=== PATIENT | male | born 1985 | race Caucasian/White ===

== ENCOUNTER 2017-03-28 12:56 | Emergency (ER) | payer SELFPAY ==
[2017-03-28] MEDS ORDERED: DICYCLOMINE HCL 10 MG/ML AMPUL IM ONE (14:35)
[2017-03-28] MEDS ORDERED: 0.9 % SODIUM CHLORIDE 1,000 ML BAG IV ONE (14:35)
--- NOTE | 2017-03-28 14:35 | Emergency Department Record ---
History of Present Illness - General Chief complaint: Rectal bleeding Stated complaint: BLOOD IN STOOL Time Seen by Provider: 03/28/17 14:29 Source: Patient Mode of Arrival: Ambulatory - History of Present Illness Initial comments: The patient has had 3 episodes of blood on his stool when he has a BM since last night. The stool itself is a normal brown but he noticed that there is blood in the toilet water (he showed a picture on his cell phone of it). He last had rectal intercourse two days ago. He states he has discomfort in his lower abdomen bilaterally which does NOT radiate to the back. He denies f,c,n,v, d, constipation. He does have a cough and is a smoker and thinks he is coming down with something" because he is coughing more. Onset/Timin -: Days(s) Radiation: LLQ, RLQ Severity scale (1-10): 5 Quality: Cramping Consistency: Constant Improves with: None Worsens with: Bowel movement Context: Rectal trauma Associated Symptoms: Abdominal pain Treatments Prior to Arrival: None - Related Data Home Medications Medication Instructions Recorded Confirmed Last Taken Albuterol Sulfate 0.083% [Neb] 3 ml NEB DAILY 03/28/17 03/28/17 03/27/17 Albuterol Sulfate [Proair Hfa] 1 - 2 puff IH Q4HR PRN 03/28/17 03/28/17 Unknown Allergies Allergy/AdvReac Type Severity Reaction Status Date / Time budesonide [From Symbicort] Allergy SWELLING Verified 03/28/17 13:24 (GENERAL) formoterol [From Symbicort] Allergy SWELLING Verified 03/28/17 13:24 (GENERAL) Sulfa (Sulfonamide Allergy SWELLING Verified 03/28/17 13:24 Antibiotics) (GENERAL) Travel Screening - Travel/Exposure Within Last 30 Days Have you traveled within the last 30 days?: No - Travel Symptoms Symptom Screening: None Review of Systems Reviewed: No additional complaints except as noted below Constitutional: Reports: As per HPI. Denies: Chills, Fever, Malaise, Night sweats, Weakness, Weight change Eyes: Reports: As per HPI. Denies: Eye discharge, Eye pain, Photophobia, Vision change ENT: Reports: As per HPI. Denies: Congestion, Dental pain, Ear pain, Epistaxis , Hearing loss, Throat pain Respiratory: Reports: As per HPI. Denies: Cough, Dyspnea, Hemoptysis, Stridor, Wheezes Cardiovascular: Reports: As per HPI. Denies: Arrhythmia, Chest pain, Dyspnea on exertion, Edema, Murmurs, Orthopnea, Palpitations, Paroxysmal nocturnal dyspnea, Rheumatic Fever, Syncope Endocrine: Reports: As per HPI. Denies: Fatigue, Heat or cold intolerance, Polydipsia, Polyuria Gastrointestinal: Reports: As per HPI. Denies: Abdominal pain, Constipation, Diarrhea, Hematemesis, Hematochezia, Melena, Nausea, Vomiting Genitourinary: Reports: As per HPI. Denies: Dysuria, Frequency, Hematuria, Incontinence, Retention, Testicular pain, Testicular mass, Urgency Musculoskeletal: Reports: As per HPI. Denies: Arthralgia, Back pain, Gout, Joint swelling, Myalgia, Neck pain Skin: Reports: As per HPI. Denies: Bruising, Change in color, Change in hair/ nails, Lesions, Pruritus, Rash Neurological: Reports: As per HPI. Denies: Abnormal gait, Confusion, Headache, Numbness, Paresthesias, Seizure, Tingling, Tremors, Vertigo, Weakness Psychiatric: Reports: As per HPI. Denies: Anxiety, Auditory hallucinations, Depression, Homicidal thoughts, Suicidal thoughts, Visual hallucinations Hematological/Lymphatic: Reports: As per HPI. Denies: Anemia, Blood Clots, Easy bleeding, Easy bruising, Swollen glands Past Medical History - SOCIAL HISTORY Smoking Status: Never smoker Alcohol Use: Occasional Drug Use: None - RESPIRATORY Hx Respiratory Disorders: Yes Hx COPD: Yes - CARDIOVASCULAR Hx Cardio Disorders: Yes Hx Hypertension: Yes - NEURO Hx Neuro Disorders: No - GI Hx GI Disorders: No - Hx Genitourinary Disorders: No - ENDOCRINE Hx Endocrine Disorders: No - MUSCULOSKELETAL Hx Musculoskeletal Disorders: No - PSYCH Hx Psych Problems: No - HEMATOLOGY/ONCOLOGY Hx Hematology/Oncology Disorders: No Family Medical History Any Significant Family History?: No Physical Exam - General General Appearance: Alert, Oriented x3, Cooperative, No acute distress - Head Head exam: Normal inspection - Eye Eye exam: Normal appearance, PERRL Pupils: Normal accommodation - ENT ENT exam: Normal exam, Mucous membranes moist, Normal external ear exam, Normal orophraynx, TM's normal bilaterally Ear exam: Normal external inspection. negative: External canal tenderness Nasal Exam: Normal inspection. negative: Discharge, Sinus tenderness Mouth exam: Normal external inspection, Tongue normal Teeth exam: Normal inspection. negative: Dental caries Throat exam: Normal inspection. negative: Tonsillar erythema, Tonsillar exudate - Neck Neck exam: Normal inspection, Full ROM. negative: Tenderness - Respiratory Respiratory exam: Rhonchi. negative: Respiratory distress - Cardiovascular Cardiovascular Exam: Regular rate, Normal rhythm, Normal heart sounds - GI/Abdominal GI/Abdominal exam: Soft, Normal bowel sounds, Tenderness (bilateral lowe abdominal tenderness on palpation). negative: Rebound, Rigid - Rectal Rectal exam: Deferred - exam: Deferred - Extremities Extremities exam: Normal inspection, Full ROM, Normal capillary refill. negative: Calf tenderness, Pedal edema, Tenderness - Back Back exam: Reports: Normal inspection, Full ROM. Denies: CVA tenderness (R), CVA tenderness (L), Muscle spasm, Rash noted, Tenderness - Neurological Neurological exam: Alert, Normal gait, Oriented X3, Reflexes normal - Psychiatric Psychiatric exam: Normal affect, Normal mood - Skin Skin exam: Dry, Intact, Normal color, Warm Course Vital Signs 03/28/17 13:25 Temperature 98.2 F Pulse Rate 63 Respiratory 18 Rate Blood Pressure 128/87 Pulse Ox 98 Disposition Quality - Blood Pressure Screening Does Patient Have Any of the Following: No Blood Pressure Classification: Pre-Hypertensive BP Reading Systolic Measurement: 128 Diastolic Measurement: 87 Screening for High Blood Pressure: < Pre-Hypertensive BP, F/U Documented > [ G8950]
== END 2017-03-28 15:00 | disposition left against medical advice (07) ==
LOC: ER 12:56
DX: R10.30 Lower abdominal pain, unspecified (principal); R05 Cough; I10 Essential (primary) hypertension; F17.210 Nicotine dependence, cigarettes, uncomplicated
CPT/HCPCS: 99281

== ENCOUNTER 2017-05-15 13:27 | Emergency (ER) | payer SELFPAY ==
[2017-05-15 13:50] LABS: STREP A SCREEN NEGATIVE (NEGATIVE)
[2017-05-15 13:58] LABS: INFLUENZA A NEGATIVE (NEGATIVE); INFLUENZA B NEGATIVE (NEGATIVE)
--- NOTE | 2017-05-15 14:33 | Emergency Department Record ---
History of Present Illness - General Chief Complaint: Cough Stated Complaint: GEORGE, COUGH Time Seen by Provider: 05/15/17 14:20 Mode of Arrival: Ambulatory - History of Present Illness Initial Comments: patient smokes and went to urgent care and insurANCE IS NOT ACTIVE SO WENT TO THE ed. MD Complaint: Cough, Nasal congestion, Sore throat Onset/Timin -: Days(s) Severity: Moderate Severity scale (1-10): 5 Consistency: Constant - Related Data Previous Rx's Medication Instructions Recorded Albuterol Sulfate [Ventolin Hfa] 1 - 2 puff IH .EVERY 4-6 HRS PRN 05/15/17 #1 inhaler Amoxicillin 500Mg Capsule [Amoxil] 500 mg PO TID #30 tab 05/15/17 Allergies Allergy/AdvReac Type Severity Reaction Status Date / Time budesonide [From Symbicort] Allergy SWELLING Verified 05/15/17 13:36 (GENERAL) formoterol [From Symbicort] Allergy SWELLING Verified 05/15/17 13:36 (GENERAL) Sulfa (Sulfonamide Allergy SWELLING Verified 05/15/17 13:36 Antibiotics) (GENERAL) Travel Screening - Travel/Exposure Within Last 30 Days Have you traveled within the last 30 days?: No - Travel/Exposure Within Last Year Have you traveled outside the [place] in the last year?: No - Additonal Travel Details Have you been exposed to anyone with a communicable illness?: No - Travel Symptoms Symptom Screening: None Review of Systems Reviewed: No additional complaints except as noted below Constitutional: Reports: As per HPI. Denies: Chills, Fever, Malaise, Night sweats, Weakness, Weight change Eyes: Reports: As per HPI. Denies: Eye discharge, Eye pain, Photophobia, Vision change ENT: Reports: As per HPI, Congestion, Throat pain. Denies: Dental pain, Ear pain, Epistaxis, Hearing loss Respiratory: Reports: As per HPI, Cough. Denies: Dyspnea, Hemoptysis, Stridor, Wheezes Cardiovascular: Reports: As per HPI. Denies: Arrhythmia, Chest pain, Dyspnea on exertion, Edema, Murmurs, Orthopnea, Palpitations, Paroxysmal nocturnal dyspnea, Rheumatic Fever, Syncope Endocrine: Reports: As per HPI. Denies: Fatigue, Heat or cold intolerance, Polydipsia, Polyuria Gastrointestinal: Reports: As per HPI. Denies: Abdominal pain, Constipation, Diarrhea, Hematemesis, Hematochezia, Melena, Nausea, Vomiting Genitourinary: Reports: As per HPI. Denies: Dysuria, Frequency, Hematuria, Incontinence, Retention, Testicular pain, Testicular mass, Urgency Musculoskeletal: Reports: As per HPI. Denies: Arthralgia, Back pain, Gout, Joint swelling, Myalgia, Neck pain Skin: Reports: As per HPI. Denies: Bruising, Change in color, Change in hair/ nails, Lesions, Pruritus, Rash Neurological: Reports: As per HPI. Denies: Abnormal gait, Confusion, Headache, Numbness, Paresthesias, Seizure, Tingling, Tremors, Vertigo, Weakness Psychiatric: Reports: As per HPI. Denies: Anxiety, Auditory hallucinations, Depression, Homicidal thoughts, Suicidal thoughts, Visual hallucinations Hematological/Lymphatic: Reports: As per HPI. Denies: Anemia, Blood Clots, Easy bleeding, Easy bruising, Swollen glands Past Medical History - SOCIAL HISTORY Smoking Status: Current every day smoker Alcohol Use: None Drug Use: None - RESPIRATORY Hx Respiratory Disorders: Yes Hx COPD: Yes - CARDIOVASCULAR Hx Cardio Disorders: Yes Hx Hypertension: Yes - NEURO Hx Neuro Disorders: No - GI Hx GI Disorders: No - Hx Genitourinary Disorders: No - ENDOCRINE Hx Endocrine Disorders: No - MUSCULOSKELETAL Hx Musculoskeletal Disorders: No - PSYCH Hx Psych Problems: No - HEMATOLOGY/ONCOLOGY Hx Hematology/Oncology Disorders: No Family Medical History Any Significant Family History?: Yes Physical Exam - General General Appearance: Alert, Oriented x3, Cooperative, No acute distress - Head Head exam: Normal inspection - Eye Eye exam: Normal appearance, PERRL Pupils: Normal accommodation - ENT ENT exam: Normal exam, Mucous membranes moist, Normal external ear exam, Normal orophraynx, TM's normal bilaterally Ear exam: Normal external inspection. negative: External canal tenderness Nasal Exam: Normal inspection. negative: Discharge, Sinus tenderness Mouth exam: Normal external inspection, Tongue normal Teeth exam: Normal inspection. negative: Dental caries Throat exam: Normal inspection. negative: Tonsillar erythema, Tonsillar exudate - Neck Neck exam: Normal inspection, Full ROM. negative: Tenderness - Respiratory Respiratory exam: Normal lung sounds bilaterally. negative: Respiratory distress - Cardiovascular Cardiovascular Exam: Regular rate, Normal rhythm, Normal heart sounds - GI/Abdominal GI/Abdominal exam: Soft, Normal bowel sounds. negative: Tenderness - Rectal Rectal exam: Deferred - exam: Deferred - Extremities Extremities exam: Normal inspection, Full ROM, Normal capillary refill. negative: Tenderness - Back Back exam: Reports: Normal inspection, Full ROM. Denies: Muscle spasm, Rash noted, Tenderness - Neurological Neurological exam: Alert, Normal gait, Oriented X3, Reflexes normal - Psychiatric Psychiatric exam: Normal affect, Normal mood - Skin Skin exam: Dry, Intact, Normal color, Warm Course Vital Signs 05/15/17 13:33 Temperature 97.9 F Pulse Rate 67 Respiratory 18 Rate Blood Pressure 133/81 Pulse Ox 98 Medical Decision Making - Lab Data Lab Results 05/15/17 Range/Units 13:40 Influenza Type A Ag Negative (NEGATIVE) Influenza Type B Ag Negative (NEGATIVE) Group A Strep Screen Negative (NEGATIVE) Disposition Clinical Impression: Bronchitis Sinusitis Qualifiers: Sinusitis location: unspecified location Chronicity: acute Recurrence: non- recurrent Qualified Code(s): J01.90 - Acute sinusitis, unspecified Disposition: Home, Self-Care Condition: (1) Good Instructions: Acute Bronchitis (ED), Sinusitis (ED) Additional Instructions: follow up with family Dr in 3 days stop cigs Prescriptions: Albuterol Sulfate [Ventolin Hfa] 1 - 2 puff IH .EVERY 4-6 HRS PRN #1 inhaler PRN Reason: Wheezing Amoxicillin 500Mg Capsule [Amoxil] 500 mg PO TID #30 tab Time of Disposition: 14:33 Quality - Quality Measures Quality Measures: N/A - Blood Pressure Screening Does Patient Have Any of the Following: No Blood Pressure Classification: Pre-Hypertensive BP Reading Systolic Measurement: 133 Diastolic Measurement: 81 Screening for High Blood Pressure: < Pre-Hypertensive BP, F/U Documented > [ G8950] Pre-Hypertensive Follow-up Interventions: Referral to alternative/primary care provider.
== END 2017-05-15 14:45 | disposition home or self-care (01) ==
LOC: ER 13:27
DX: J20.9 Acute bronchitis, unspecified (principal); J01.90 Acute sinusitis, unspecified; R51 Headache; I10 Essential (primary) hypertension; F17.210 Nicotine dependence, cigarettes, uncomplicated
CPT/HCPCS: 87400; 87880; 99282

== ENCOUNTER 2017-06-28 13:19 | Emergency (ER) | payer SELFPAY | END 2017-06-28 14:42 | disposition left against medical advice (07) | LOC: ER 13:19 | DX: Z53.20 Procedure and treatment not carried out because of patient's decision for unspecified reasons (principal) ==

== ENCOUNTER 2017-07-30 09:53 | Emergency (ER) | payer SELFPAY ==
--- NOTE | 2017-07-30 10:07 | Emergency Department Record ---
History of Present Illness - General Chief Complaint: Laceration(s) Stated Complaint: LACERATION TO FINGER Time Seen by Provider: 07/30/17 10:02 Source: Patient Mode of Arrival: Ambulatory Limitations: No limitations - History of Present Illness Initial Commments: 32 yo male injured his left middle finger in a door 45 minutes prior to arrival. He slammed the finger accidentally in the door. His nail is mostly avulsed. His last tetanus was one year ago per the patient. He is right handed. -: Minutes(s) (45) Extremity Location: Left: Hand Place: Home Context: Accidental Associated Symptoms: None Treatments Prior to Arrival: Bandage - Robert Coma Scale Eye Response: (4) Open spontaneously Motor Response: (6) Obeys commands Verbal Response: (5) Oriented Robert Total: 15 - Related Data Previous Rx's Medication Instructions Recorded Cephalexin [Keflex] 500 mg PO QID #28 cap 07/30/17 Hydrocodone/Acetaminophen [[place] 1 each PO Q6H #12 tablet 07/30/17 5-325 Tablet] Allergies Allergy/AdvReac Type Severity Reaction Status Date / Time budesonide [From Symbicort] Allergy SWELLING Verified 06/28/17 14:09 (GENERAL) formoterol [From Symbicort] Allergy SWELLING Verified 06/28/17 14:09 (GENERAL) Sulfa (Sulfonamide Allergy SWELLING Verified 06/28/17 14:09 Antibiotics) (GENERAL) Review of Systems Constitutional: Denies: Chills, Fever Eyes: Denies: Eye discharge ENT: Denies: Congestion, Throat pain Respiratory: Denies: Cough Cardiovascular: Denies: Syncope Endocrine: Denies: Fatigue Gastrointestinal: Denies: Diarrhea, Nausea, Vomiting Genitourinary: Denies: Dysuria Musculoskeletal: Reports: As per HPI, Arthralgia Skin: Denies: Bruising, Change in color, Rash Neurological: Denies: Headache Psychiatric: Denies: Anxiety Hematological/Lymphatic: Denies: Blood Clots, Easy bleeding, Easy bruising Past Medical History - SOCIAL HISTORY Smoking Status: Current every day smoker Drug Use: None - RESPIRATORY Hx Respiratory Disorders: Yes Hx COPD: Yes - CARDIOVASCULAR Hx Cardio Disorders: Yes Hx Hypertension: Yes - NEURO Hx Neuro Disorders: No - GI Hx GI Disorders: No - Hx Genitourinary Disorders: No - ENDOCRINE Hx Endocrine Disorders: No - MUSCULOSKELETAL Hx Musculoskeletal Disorders: No - PSYCH Hx Psych Problems: No - HEMATOLOGY/ONCOLOGY Hx Hematology/Oncology Disorders: No Physical Exam - General General Appearance: Alert, Oriented x3, Cooperative, No acute distress Limitations: No limitations - Head Head exam: Normal inspection - Eye Eye exam: Normal appearance - ENT ENT exam: Normal exam Ear exam: Normal external inspection Nasal Exam: Normal inspection Mouth exam: Normal external inspection - Neck Neck exam: Normal inspection - Cardiovascular Peripheral Pulses: 2+: Radial (L) - Rectal Rectal exam: Deferred - exam: Deferred - Extremities Extremities exam: Joint swelling, Normal capillary refill, Tenderness. negative : Normal inspection, Full ROM Image of Finger Tip: 1 - proximally avulsed nail, subungual hematoma, held in normal anatomic position 2 - nail bed laceration, mildly irregular - Neurological Neurological exam: Alert, Oriented X3 - Psychiatric Psychiatric exam: Normal affect, Normal mood - Skin Skin exam: Dry, Intact, Normal color, Warm Course - Reevaluation(s) Reevaluation #1: Digital Block Betadine Prep of the L middle finger 3.5ml of Lidocaine plain 1% with Bupivacaine 50/50 mix XR ordered 07/30/17 10:05 07/30/17 11:03 Procedure Sterile prep with betadine The area was copiously irrigated with NS The nail was essentially completely avulsed The nail bed was inspected. A linear transverse laceration was noted No contamination The nail bed was closed with 4 chromic sutures with good approximation The nail was cleaned and re-inserted with sutures to support the nail fold The area was dressed with antibiotic ointment and splinted The XR was reviewed. On one view there may be a tiny non displaced fracture at the tip He will be placed on Keflex, splinted and given follow up information. Disposition Disposition: Discharge Clinical Impression: Nail avulsion, finger, Open fracture of distal phalangeal tuft, Laceration of nail bed of finger Disposition: Home, Self-Care Condition: (1) Good Instructions: Nail Avulsion (ED) Additional Instructions: Call the number provided for follow up of your finger injury Return in 2 days for a recheck of the injury Return sooner if worse, pus, swelling or any new concerns Prescriptions: Cephalexin [Keflex] 500 mg PO QID #28 cap Hydrocodone/Acetaminophen [[place] 5-325 Tablet] 1 each PO Q6H #12 tablet Referrals: VERONIQUE YADAV M.D. [MEDICAL DOCTOR] - Forms: Patient Portal Access Time of Disposition: 11:12 Quality - Quality Measures Quality Measures: N/A - Blood Pressure Screening Does Patient Have Any of the Following: No Blood Pressure Classification: Normal BP Reading Systolic Measurement: 119 Diastolic Measurement: 75 Screening for High Blood Pressure: < Normal BP, F/U Not Required > [G8783]
--- NOTE | 2017-07-31 20:57 | RADIOLOGY REPORT ---
EXAM: FINGER(S), LEFT HISTORY: PATIENT SMASHED DISTAL END OF THIRD FINGER IN HOUSEHOLD DOOR WITH THE FINGERNAIL UNATTACHED. TECHNIQUE: Three views left third finger. COMPARISON: None. ENCOUNTER: Initial. FINDINGS: Particularly on the lateral view, there does appear to be an undisplaced fracture of the tuft of the distal phalanx of the third finger. Also particularly on the lateral view, there appears to be some air underneath what is probably the region of the base of the fingernail. No dislocation of the third finger identified. No fracture of the proximal or middle phalanges evident. IMPRESSION: 1. UNDISPLACED FRACTURE TUFT OF THE DISTAL PHALANX OF THE THIRD FINGER. 2. SOME APPARENT DISRUPTION AT THE BASE OF THE FINGERNAIL WITH SOME AIR IN THIS REGION. JOB NUMBER: [id number] MTDD
== END 2017-07-30 11:39 | disposition home or self-care (01) ==
LOC: ER 09:53
DX: S62.663A Nondisplaced fracture of distal phalanx of left middle finger, initial encounter for closed fracture (principal); S61.313A Laceration without foreign body of left middle finger with damage to nail, initial encounter; W23.0XXA Caught, crushed, jammed, or pinched between moving objects, initial encounter; Y92.009 Unspecified place in unspecified non-institutional (private) residence as the place of occurrence of the external cause; J44.9 Chronic obstructive pulmonary disease, unspecified; I10 Essential (primary) hypertension; F17.210 Nicotine dependence, cigarettes, uncomplicated
CPT/HCPCS: 11760; 73140; 99283; 99284

== ENCOUNTER 2017-08-04 15:41 | Emergency (ER) | payer BC ==
--- NOTE | 2017-08-04 16:07 | Emergency Department Record ---
History of Present Illness - General Chief Complaint: Wound, check Stated Complaint: RECHECK SUTURES Time Seen by Provider: 08/04/17 15:42 Source: Patient Mode of arrival: Ambulatory Limitations: No limitations - History of Present Illness Initial Comments: The patient is here due to wanting to have his L 3rd finger wound rechecked. He had the finger shut in a door 5 days ago and did have a nail bed lac. The lac was repaired here with chronic sutures and the nail replaced in the fold. He was supposed to F/U with a hand surgeon but did not follow those instructions. Now he would like the wound rechecked. He states the finger does hurt with palpation. Complaint: Wound re-check Onset/Timin -: Days(s) Initial Visit For: Laceration Returns Today for: Wound recheck Symptoms Since Prior Visit: Other Associated Symptoms: None - Related Data Previous Rx's Medication Instructions Recorded Cephalexin [Keflex] 500 mg PO QID #28 cap 07/30/17 Hydrocodone/Acetaminophen [[place] 1 each PO Q6H #12 tablet 07/30/17 5-325 Tablet] Allergies Allergy/AdvReac Type Severity Reaction Status Date / Time budesonide [From Symbicort] Allergy SWELLING Verified 08/04/17 15:45 (GENERAL) formoterol [From Symbicort] Allergy SWELLING Verified 08/04/17 15:45 (GENERAL) Sulfa (Sulfonamide Allergy SWELLING Verified 08/04/17 15:45 Antibiotics) (GENERAL) Travel Screening - Travel/Exposure Within Last 30 Days Have you traveled within the last 30 days?: No - Travel/Exposure Within Last Year Have you traveled outside the [place] in the last year?: No - Additonal Travel Details Have you been exposed to anyone with a communicable illness?: No - Travel Symptoms Symptom Screening: None Review of Systems Constitutional: Denies: Chills, Fever Eyes: Denies: Eye discharge ENT: Denies: Congestion Respiratory: Denies: Cough, Dyspnea Past Medical History - SOCIAL HISTORY Smoking Status: Current every day smoker Alcohol Use: None Drug Use Detail:: Marijuana - RESPIRATORY Hx Respiratory Disorders: Yes Hx COPD: Yes - CARDIOVASCULAR Hx Cardio Disorders: Yes Hx Hypertension: Yes - NEURO Hx Neuro Disorders: No - GI Hx GI Disorders: No - Hx Genitourinary Disorders: No - ENDOCRINE Hx Endocrine Disorders: No - MUSCULOSKELETAL Hx Musculoskeletal Disorders: No - PSYCH Hx Psych Problems: No - HEMATOLOGY/ONCOLOGY Hx Hematology/Oncology Disorders: No Family Medical History Any Significant Family History?: No Physical Exam - General General Appearance: Alert, Cooperative, No acute distress - Extremities Extremities exam: negative: Normal inspection (The L 3rd finger appears to be healing normally. There is a suture holding the nail in the fold.) Course Vital Signs 08/04/17 15:46 Temperature 98.1 F Pulse Rate 77 Respiratory 20 Rate Blood Pressure 137/87 Pulse Ox 98 - Reevaluation(s) Reevaluation #1: I explained to the patient that he should have seen the hand surgeon for f/u and he understands that. He is to continue his Abx's and return to the ER in 2 days for suture removal. 08/04/17 16:01 Disposition Disposition: Discharge Clinical Impression: Open fracture of distal phalangeal tuft Disposition: Home, Self-Care Condition: (2) Stable Instructions: Nail Avulsion (ED) Additional Instructions: Please keep the finger clean with no soaking but wash every day. Have the nail fold suture removed in 2 days. Forms: Patient Portal Access Time of Disposition: 16:07 Quality - Quality Measures Quality Measures: N/A - Blood Pressure Screening View Details: Yes Does Patient Have Any of the Following: No Blood Pressure Classification: Pre-Hypertensive BP Reading Systolic Measurement: 137 Diastolic Measurement: 87 Screening for High Blood Pressure: < Pre-Hypertensive BP, F/U Documented > [ G8950] Pre-Hypertensive Follow-up Interventions: Referral to alternative/primary care provider.
== END 2017-08-04 16:11 | disposition home or self-care (01) ==
LOC: ER 15:41
DX: Z48.02 Encounter for removal of sutures (principal); S62.663A Nondisplaced fracture of distal phalanx of left middle finger, initial encounter for closed fracture; S61.313A Laceration without foreign body of left middle finger with damage to nail, initial encounter; W23.0XXA Caught, crushed, jammed, or pinched between moving objects, initial encounter; Y92.009 Unspecified place in unspecified non-institutional (private) residence as the place of occurrence of the external cause; I10 Essential (primary) hypertension; F17.210 Nicotine dependence, cigarettes, uncomplicated
CPT/HCPCS: 99282